=== PATIENT | male | born 1965 | race Caucasian/White ===

== ENCOUNTER 2020-10-21 14:01 | Observation (INO) | payer BC, SELFPAY ==
[2020-10-21] VITALS (13 sets, daily range): BP systolic 132–198; BP diastolic 74–120; PULSE 67–110; RESP 12–20; TEMP 36.7–37; O2SAT 93–99; BMI 22.2; BMI 22.1
--- NOTE | 2020-10-21 15:05 | HMH.EDUTC ---
[facility] [place] Clinical Impression: Epigastric abdominal pain Disposition: Still a Patient Condition on Discharge: Undetermined Additional Instructions: Sent to ER for further workup and imaging. Referrals: Ricki Durán MD [Primary Care Provider] - Time of Disposition: 15:19 Medical Decision Making - Saad Inquiry Pt receiving controlled substance: No Vital Signs: 10/21/20 14:40 Temperature 98.6 F Temperature Source Oral Pulse Rate [Right Brachial] 109 H Respiratory Rate 20 Blood Pressure [Right Arm] 192/109 H Blood Pressure Mean [Right Arm] 136 Blood Pressure Source [Right Arm] Automatic Cuff Blood Pressure Position [Right Arm] Sitting 02 Sat by Pulse Oximetry 98 Oxygen Delivery Method Room Air [facility] [place] - General Stated complaint: stomach pain and back Time Seen by Provider: 10/21/20 15:05 Mode of Arrival: Ambulatory Source of Information: Patient Limitations: No Limitations Description of Symptoms (Recalled from Triage Doc. by RN): PATIENT C/O SEVERE ABDOMINAL PAIN AND BACK PAIN X 4 WEEKS. ALSO REPORTS A DECREASED APPETITE AND RECENT WEIGHT LOSS HEENT Symptoms (Recalled from RN notes): No Resp Symptoms (Recalled from RN notes): No Skin Symptoms (Recalled from RN notes): No MS Symptoms (Recalled from RN notes): No Functional Status (Recalled from RN notes): WNL - History of Present Illness Provider Complaint: Patient presents with epigastric pain, radiating into back. Has had pain for about 4 weeks. He does drink and is trying to cut back. Since being here, he states pain is radiating between his shoulder blades as well. He has early satiety. Food isn't appealing and he is trying to force himself to eat. He has lost around 15 pounds in the past 5-6 weeks. Location: abdomen Radiation: back Quality: burning Consistency: constant Relieving factors: none Exacerbating factors: none Associated symptoms: loss of appetite, malaise, nausea/vomiting Treatments prior to arrival: none - Related Data Home Medications Medication Instructions Recorded Confirmed Lisinopril/Hydrochlorothiazide 1 tab PO DAILY 10/21/20 10/21/20 [Lisinopril-Hctz 10-12.5 mg Tab*] Allergies Allergy/AdvReac Type Severity Reaction Status Date / Time No Known Allergies Allergy Verified 10/21/20 14:50 - Worker's Comp Is this a Worker's Comp case?: No [facility] History - Hepatitis A Screen Drug use history?: No High risk sexual behaviors?: No History of sexually transmitted infection?: No Currently employed?: No Childcare worker?: No Do you have indoor plumbing?: Yes Do you have electricity?: Yes Attestation statement:: This patient has been screened for Hepatitis A risk factors. I have reviewed the patient's past medical history: Yes - Social History Alcohol Intake: never Occupational Status: other ROS Obtained: Yes All systems reviewed & no additional complaints - Constitutional Constitutional: Reports poor appetite, Reports weight loss - Gastrointestinal Gastrointestingal: Reports: abdominal pain, loose stools, nausea Physical Exam - General General appearance: alert, other (uncomfortable) - Eye Eye exam: Present: jaundice - Chest Chest inspection: Present: normal inspection, symmetric chest wall rise - Respiratory Respiratory exam: Present: normal lung sounds bilaterally - Cardiovascular Cardiovascular exam: Present: regular rate, normal rhythm - Abdominal Exam Abdominal exam: Present: tenderness Abdominal tenderness: Present: epigastrium - Neurological Exam Neurological exam: Present: alert, oriented X3 - Psychiatric Psychiatric exam: Present: normal affect, normal mood - Skin Skin exam: Present: warm, dry, intact
--- NOTE | 2020-10-21 15:33 | CT_ITS ---
PROCEDURE: CT ABDOMEN PELVIS W CON CLINICAL INDICATION: epigastric pain COMPARISON: US US GALLBLADDER from 10/21/2020 TECHNIQUE: IV Contrast: 75ML Isovue 370 Oral Contrast None Axial images obtained with sagittal and coronal reformats. All CT scans at the facility use one or more dose reduction, viz: automated exposure control, ma/kV adjustment per patient size (including targeted exams where dose is matched to indication, i.e. head), or iterative reconstruction technique. FINDINGS: LOWER THORAX: No acute finding ABDOMEN & PELVIS: Fatty liver. No focal liver lesion identified. The spleen, adrenal glands, and kidneys have an unremarkable appearance. There is an oval area decreased attenuation within the anterior aspect of the junction of the body and head of the pancreas measuring 18 x 6 mm. This is best demonstrated on series 3 image 36 and 37. No biliary dilatation. No pancreatic ductal dilatation. No evidence of appendicitis. There are scattered air-fluid levels within nondilated large and small bowel. This may be seen with ileus, enterocolitis/diarrhea disease. No evidence of intestinal obstruction or free air. Urinary bladder wall is moderately thickened measuring up to 8 mm in thickness. The prostate gland is not enlarged. There is a small umbilical hernia. Mild degenerative changes are present in the lumbar spine. IMPRESSION: 1. Scattered air-fluid levels within non distended large and small bowel which may indicate ileus, enterocolitis or diarrhea disease. 2. No evidence of appendicitis or diverticulitis. 3. Iso density along the anterior aspect of the pancreatic head/body junction. This is nonspecific. Cystic pancreatic lesion is a consideration. This may represent a juxta pancreatic lymph node. Nonemergent MRI of the pancreas without and with contrast with pancreatic protocol suggested for further evaluation. 4. There is moderate urinary bladder wall thickening. Chronic outflow obstruction, neurogenic bladder or cystitis is considered. Dictated by: Jem Vale MD 10/21/2020 17:01 Jem Vale MD in [place] 10/21/2020 17:01
--- NOTE | 2020-10-21 15:36 | ECG_ITS ---
APPROVED REPORT Exam: Resting ECG HR:78 bpm ECG Measurements Heart Rate 78 AXES VT 162 P 57 QRSd 86 QRS -3 QT 416 T 32 QTc 474 Conclusion Normal sinus rhythm with sinus arrhythmia Septal infarct, age undetermined Possible Inferior infarct, age undetermined Abnormal ECG Electronically signed by : Juan Francisco Valdez, 10/23/2020 20:30:32
[2020-10-21 15:50] LABS: Basophils # 0.1 K/mm3 (0-0.2); Eosinophils % 0.2 % (0.1-12.0)
--- NOTE | 2020-10-21 15:51 | HMH.EDGENADL ---
ED Disposition Clinical Impression: Hypokalemia, Pancreatic mass, Elevated liver enzymes, Elevated lipase, Alcoholism, Weight loss Abdominal pain Qualifiers: Abdominal location: epigastric Qualified Code(s): R10.13 - Epigastric pain Disposition: Admitted as Observation Condition on Discharge: Fair Additional Instructions: Sent to ER for further workup and imaging. Referrals: Ricki Durán MD [Primary Care Provider] - - Critical Care Critical Care Time: Yes Attestation: On 10/21/20, the high probability of a clinically significant, sudden or life threatening deterioration of the following system(s) required my full and direct attention, intervention and personal management. The time I documented below is in addition to time spent performing reported procedures but includes the following listed in this critical care notation. Total Critical Care Time: 30 Vital system(s) involved:: Metabolic Failure My critical care processes included: Assessment & monitoring of V/S, Initial and Re-exams, Data Review/Interpretation, Coordinating Care, Medication Orders and management, Documentation Medical Decision Making - Saad Inquiry Pt receiving controlled substance: No Vital Signs: 10/21/20 14:40 10/21/20 15:29 10/21/20 15:33 Temperature 98.6 F 98.3 F Temperature Source Oral Oral Pulse Rate 102 H Pulse Rate [Right Brachial] 109 H 110 H Respiratory Rate 20 18 18 Blood Pressure 161/120 H Blood Pressure [Right Arm] 192/109 H 198/115 H Blood Pressure Mean 131 Blood Pressure Mean [Right Arm] 136 142 Blood Pressure Source [Right Arm] Automatic Cuff Automatic Cuff Blood Pressure Position [Right Arm] Sitting Sitting 02 Sat by Pulse Oximetry 98 98 99 Oxygen Delivery Method Room Air Room Air 10/21/20 16:00 10/21/20 16:01 10/21/20 18:00 Temperature Temperature Source Pulse Rate 106 H 72 Pulse Rate [Right Brachial] 105 H Respiratory Rate 18 16 16 Blood Pressure 158/113 H 167/98 H Blood Pressure [Right Arm] 158/113 H Blood Pressure Mean 128 149 Blood Pressure Mean [Right Arm] 128 Blood Pressure Source [Right Arm] Blood Pressure Position [Right Arm] 02 Sat by Pulse Oximetry 98 99 98 Oxygen Delivery Method - Lab Data Lab Results 10/21/20 15:33: WBC 11.6 H, RBC 4.95, Hgb 18.4 H*, Hct 55.1 H, MCV 111.3 H, MCH 37.1 H, MCHC 33.3, RDW 16.2, Plt Count 294, MPV 8.5, Neut % (Auto) 74.6, Lymph % (Auto) 18.7, [place] % (Auto) 6.0, Eos % (Auto) 0.2, Baso % (Auto) 0.5, Neut # (Auto) 8.6 H, Lymph # (Auto) 2.2, [place] # (Auto) 0.7, Eos # (Auto) 0.0, Baso # (Auto) 0.1 10/21/20 15:33: Sodium 138, Potassium 2.5 L*, Chloride 95 L, Carbon Dioxide 34 H, Anion Gap 11.5, BUN 3 L, Creatinine 0.60 L, Estimated Creat Clear 150, Estimated GFR 141, Est GFR ( Amer) 171, Glucose 101 H, Calcium 9.4, Total Bilirubin 1.4 H, AST 184 H, ALT 126 H, Alkaline Phosphatase 106, Troponin I < 0.01, Total Protein 7.2, Albumin 4.0, Globulin 3.2, Albumin/Globulin Ratio 1.3, Amylase 91, Lipase 422 H 10/21/20 15:33: Lactate 1.8 10/21/20 15:33: Ammonia < 9 L 10/21/20 15:33: PT 10.9, INR 0.92 10/21/20 15:33: Magnesium 2.0 10/21/20 16:55: Urine Color Yellow, Urine Appearance Clear, Urine pH 7.5, Ur Specific [place] 1.010, Urine Protein Negative, Urine Glucose (UA) Negative, Urine Ketones 1+, Urine Blood Negative, Urine Nitrate Negative, Urine Bilirubin 1+ A, Urine Urobilinogen 0.2, Ur Leukocyte Esterase Negative, Urine RBC None, Urine WBC None, Ur Squamous Epith Cells None, Urine Bacteria None Result diagrams: 10/21/20 15:33 10/21/20 15:33 Orders (Tests/Meds): ED MEDICATIONS Discontinued Medications Generic Name Dose Route Start Last Admin Trade Name Freq PRN Reason Stop Dose Admin Sodium Chloride 1,000 mls @ 999 mls/hr 10/21/20 16:15 10/21/20 16:06 Sod Chlor 0.9% 1000ml Bag IV 10/21/20 17:15 999 mls/hr .Q1H1M ANATOLY Administration Potassium Chloride/Water 100 mls @ 50 mls/hr 10/21/20 16:30 10/21/20 16:40
[2020-10-21 15:56] LABS: Basophils % 0.5 % (0.1-2.0); Hematocrit 55.1 % (42.0-52.0); Hemoglobin 18.4 g/dL (14.1-18.0); Lymphocytes # 2.2 K/mm3 (0.7-4.5); Lymphocytes % 18.7 % (10-50); Mean Corpuscular HGB Conc 33.3 g/dL (31.8-35.4); Mean Corpuscular Hemoglobin 37.1 pg (27.0-31.2); Mean Corpuscular Volume 111.3 fl (80-94); Mean Platelet Volume 8.5 fl (7.4-10.4); Monocytes # 0.7 K/mm3 (0.1-1.0); Neutrophils # 8.6 K/mm3 (1.8-7.8); Neutrophils % 74.6 % (37.0-80.0); Platelet Count 294 K/mm3 (142-424); Red Blood Count 4.95 M/mm3 (4.60-6.20); Red Cell Distribution Width 16.2 % (11.5-17.5); White Blood Count 11.6 K/mm3 (4.8-10.8)
--- NOTE | 2020-10-21 15:58 | XR_ITS ---
PROCEDURE: XR CHEST PORTABLE CLINICAL HISTORY: epigastric pain COMPARISON: No exams were available for comparison FINDINGS: Unremarkable cardiovascular structures. The lungs are clear without infiltrates, suspicious nodules, or pleural effusions. No acute bony abnormalities. IMPRESSION: No change with no acute finding Dictated by: Jem Vale MD 12/14/2020 12:31 Jem Vale MD in [place] 12/14/2020 12:31
[2020-10-21 16:00] LABS: Chloride 95 mmol/L (98-107)
[2020-10-21 16:01] LABS: Potassium 2.5 mmoL/L (3.5-5.1); Sodium 138 mmol/L (136-145)
[2020-10-21 16:03] LABS: Amylase 91 U/L (30-110); Blood Urea Nitrogen 3 mg/dl (9-20); Creatinine Clearance Estimated 150 mL/min (50-200); Estimated Glomerular Filt Rate 141 ml/min (>60); GFR (African American) 171 ML/MIN (>60); Lactic Acid 1.8 mmol/L (0.7-2.1)
[2020-10-21 16:04] LABS: Alanine Aminotransferase 126 U/L (12-78); Albumin/Globulin Ratio 1.3 (1.1-1.8); Alkaline Phosphatase 106 U/L (38-126); Anion Gap 11.5 mEq/L (5-15); Aspartate Amino Transferase 184 U/L (17-59); Bilirubin,Total 1.4 mg/dl (0.2-1.3); Calcium 9.4 mg/dl (8.4-10.2); Carbon Dioxide 34 mmol/L (22.0-30.0); Globulin 3.2 g/dL (1.3-3.2); Glucose 101 mg/dl (74-100); Lipase 422 U/L (23-300); Total Protein,Serum 7.2 g/dl (6.3-8.2)
[2020-10-21 16:05] LABS: Ammonia < 9 umol/L (9-30)
--- NOTE | 2020-10-21 16:05 | US_ITS ---
PROCEDURE INFORMATION: Exam: US Abdomen, Limited; Right Upper Quadrant Exam date and time: 10/21/2020 4:05 PM Age: 55 years old Clinical indication: Abdominal pain; Generalized; Patient HX: Abdomen pain ---. No appitite TECHNIQUE: Imaging protocol: US abdomen. Real time ultrasound with image documentation. Limited exam focused on the right upper quadrant. COMPARISON: CT ABDOMEN PELVIS W CON 10/21/2020 4:19 PM FINDINGS: Liver: Normal. No masses. Gallbladder: The gallbladder is seen and unremarkable. Common bile duct: The common bile duct measures 3.5 mm. Pancreas: Visualized pancreas is unremarkable. Right kidney: The right kidney measures 11.8 x 4.4 x 6 cm. No evidence of hydronephrosis or stones. IMPRESSION: Unremarkable right upper quadrant ultrasound.
--- NOTE | 2020-10-21 16:09 | PC.NURSE ---
Pt going up to radiology
[2020-10-21 16:13] LABS: INR 0.92 (0.9-1.1); Prothrombin Time 10.9 seconds (10.1-12.5)
[2020-10-21 16:17] LABS: Troponin I < 0.01 ng/ml (0.00-0.034)
[2020-10-21 16:59] LABS: Microscopic, Urine URINE MICROSCOPIC (MICROSCOPIC)
[2020-10-21 17:01] LABS: Appearance,Urine CLEAR (Clear); Blood, Urine Negative (Negative); Color,Urine YELLOW (Yellow); Glucose,Urine (UA) Negative (Negative); Ketones,Urine 1+ (Negative); Leukocyte Esterase,Urine Negative (Negative); Nitrate,Urine Negative (Negative); PH,Urine 7.5 (5.0-8.5); Protein,Urine Negative (Negative); Urobilinogen,Urine 0.2 EU/dl (0.2)
[2020-10-21 17:04] LABS: Bilirubin,Urine 1+ (Negative)
--- NOTE | 2020-10-21 18:21 | PC.NURSE ---
Dr. Durán pagehudson
--- NOTE | 2020-10-21 19:37 | PC.NURSE ---
Pt and his requested to s/w Dr. Daigle again regarding the CT results, MD aware.
--- NOTE | 2020-10-21 19:58 | PC.NURSE ---
attempted to call to call report, however floor unaware of pt admission. Called House to verify pt is assigned.
--- NOTE | 2020-10-21 20:56 | PC.NURSE ---
Attempted to call report at this time.
--- NOTE | 2020-10-21 21:41 | PC.NURSE ---
Report called to charge nurse at this time.
--- NOTE | 2020-10-21 22:14 | PC.NURSE ---
PT ARRIVED TO FLOOR VIA W/C FROM ED W/STAFF r [id number]
[2020-10-21 22:19] LABS: Troponin I < 0.01 ng/ml (0.00-0.034)
[2020-10-22] VITALS: BP 158/101; PULSE 69; PULSE 80; RESP 16; TEMP 36.9; O2SAT 99
[2020-10-22 04:00] VITALS: BP 170/99; PULSE 70; PULSE 71; RESP 16; TEMP 36.7; O2SAT 99
[2020-10-22 07:36] LABS: Amylase 77 U/L (30-110); Anion Gap 4.2 mEq/L (5-15); Blood Urea Nitrogen 2 mg/dl (9-20); Carbon Dioxide 32 mmol/L (22.0-30.0); Chloride 101 mmol/L (98-107); Creatinine Clearance Estimated 179 mL/min (50-200); Estimated Glomerular Filt Rate 174 ml/min (>60); GFR (African American) 210 ML/MIN (>60); Glucose 94 mg/dl (74-100); Lipase 461 U/L (23-300); Potassium 3.2 mmoL/L (3.5-5.1); Sodium 134 mmol/L (136-145)
[2020-10-22 07:48] LABS: Calcium 8.4 mg/dl (8.4-10.2)
[2020-10-22 08:00] VITALS: BP 172/95; PULSE 74; PULSE 80; RESP 17; TEMP 36.6; O2SAT 98
[2020-10-22 08:36] LABS: Alanine Aminotransferase 81 U/L (12-78); Aspartate Amino Transferase 95 U/L (17-59); Bilirubin,Unconjugated 0.9 mg/dL (0.0-1.1)
[2020-10-22 08:37] LABS: Alkaline Phosphatase 74 U/L (38-126); Bilirubin,Direct 0.5 mg/dl (0.0-0.4); Bilirubin,Indirect 0.9 mg/dL (0.0-0.9); Bilirubin,Total 1.4 mg/dl (0.2-1.3); Total Protein,Serum 5.7 g/dl (6.3-8.2)
--- NOTE | 2020-10-22 08:43 | HMH.HPDC ---
General - General Admission date:: 10/21/20 Discharge date: 10/22/20 *Admission Date: 10/21/20 *Chief complaint: abdominal pain *History of present illness: 55 year old male with a few week history of upper abdominal pain. Patient describes his pain as a band like pressure around his upper abdomen and around to both sides. He has had a decrease in his appetite and some weight loss as well. Patient denies fever and chills. He has had nausea but no vomiting. He has had constipation, denies diarrhea. No sick contacts. Patient drinks around a 5th of liquor per day. [facility] History Medical History: Reports:: Hypertension Denies:: Cancer, Diabetes Mellitus Type 1, Diabetes Mellitus Type 2, MRSA *Have you ever received a pneumonia vaccine?: No *Have you received a flu vaccine this season?: No Amputation: No - *Social History Last grade of school completed: High school graduate Smoking Status: Current every day smoker Tobacco Type: cigarettes, smokeless tobacco # Packs/Day (cigarettes): 1 Alcohol Intake: current Alcohol Intake Frequency:: 0-2 drinks per day *Occupational Status:: employed Housing: house Household Members: spouse *Travel in the last 8 weeks: None Family Hx:: No significant family history Review of Systems - Constitutional Denies chills, Denies fever(s) - Eyes Denies change in vision - ENT Denies abnormal hearing - *Cardiovascular Denies chest pain - *Respiratory Denies cough - *Genitourinary Denies difficulty urinating - *Musculoskeletal Denies joint pain - Integumentary/Breasts Denies rash - *Neurologic Denies dizziness Exam Vital signs and Labs for Last 24 Hours: Temp Pulse Resp BP Pulse Ox 98.1 F 71 16 170/99 H 99 10/22/20 04:00 10/22/20 04:00 10/22/20 04:00 10/22/20 04:00 10/22/20 04:00 Laboratory Results - last 24 hr 10/21/20 15:33: WBC 11.6 H, RBC 4.95, Hgb 18.4 H*, Hct 55.1 H, MCV 111.3 H, MCH 37.1 H, MCHC 33.3, RDW 16.2, Plt Count 294, MPV 8.5, Neut % (Auto) 74.6, Lymph % (Auto) 18.7, [place] % (Auto) 6.0, Eos % (Auto) 0.2, Baso % (Auto) 0.5, Neut # (Auto) 8.6 H, Lymph # (Auto) 2.2, [place] # (Auto) 0.7, Eos # (Auto) 0.0, Baso # (Auto) 0.1 10/21/20 15:33: Sodium 138, Potassium 2.5 L*, Chloride 95 L, Carbon Dioxide 34 H, Anion Gap 11.5, BUN 3 L, Creatinine 0.60 L, Estimated Creat Clear 150, Estimated GFR 141, Est GFR ( Amer) 171, Glucose 101 H, Calcium 9.4, Total Bilirubin 1.4 H, AST 184 H, ALT 126 H, Alkaline Phosphatase 106, Troponin I < 0.01, Total Protein 7.2, Albumin 4.0, Globulin 3.2, Albumin/Globulin Ratio 1.3, Amylase 91, Lipase 422 H 10/21/20 15:33: Lactate 1.8 10/21/20 15:33: Ammonia < 9 L 10/21/20 15:33: PT 10.9, INR 0.92 10/21/20 15:33: Magnesium 2.0 10/21/20 16:55: Urine Color Yellow, Urine Appearance Clear, Urine pH 7.5, Ur Specific [place] 1.010, Urine Protein Negative, Urine Glucose (UA) Negative, Urine Ketones 1+, Urine Blood Negative, Urine Nitrate Negative, Urine Bilirubin 1+ A, Urine Urobilinogen 0.2, Ur Leukocyte Esterase Negative, Urine RBC None, Urine WBC None, Ur Squamous Epith Cells None, Urine Bacteria None 10/21/20 21:53: Troponin I < 0.01 10/22/20 06:50: Sodium 134 L, Potassium 3.2 L D, Chloride 101, Carbon Dioxide 32 H, Anion Gap 4.2 L, BUN 2 L D, Creatinine 0.50 L, Estimated Creat Clear 179, Estimated GFR 174, Est GFR ( Amer) 210 D, Glucose 94, Calcium 8.4 D, Amylase 77 D, Lipase 461 H 10/22/20 06:50: Total Bilirubin 1.4 H, Direct Bilirubin 0.5 H, Conjugated Bilirubin 0.0, Indirect Bilirubin 0.9, Unconjugated Bilirubin 0.9, AST 95 H D, ALT 81 H D, Alkaline Phosphatase 74, Total Protein 5.7 L, Albumin 3.0 L D I & O for Last 24 hours: Intake & Output 10/19/20 10/20/20 10/21/20 10/22/20 23:59 23:59 23:59 23:59 Weight 163 lb 7 oz Microbiology Reports for the Last 24 Hours: Microbiology 10/21/20 15:50 Nasopharyngeal Coronavirus COVID-19 PCR - Final - Constitutional no acute distress - *Routine HEENT E
== END 2020-10-22 12:00 | disposition home or self-care (01) ==
LOC: UTC 15:19 → ER 15:28 → 2ND 20:40
PROVIDERS: Admitting Provider Family Medicine; Emergency Provider Emergency Medicine; PCP Family Medicine; Visit Provider Family Medicine
DX: R10.13 Epigastric pain (principal); K59.00 Constipation, unspecified; F17.210 Nicotine dependence, cigarettes, uncomplicated; F17.220 Nicotine dependence, chewing tobacco, uncomplicated; I10 Essential (primary) hypertension; F10.20 Alcohol dependence, uncomplicated; K86.9 Disease of pancreas, unspecified
CPT/HCPCS: 71045; 74177; 76705; 80048; 80053; 80076; 81001; 82140; 82150; 83605; 83690; 83735; 84484; 85025; 85610; 87040; 93005; 96365; 99282; G0378; Q9967; U0003

== ENCOUNTER → 2020-10-28 10:20 | Outpatient (CLI) | payer BC, SELFPAY ==
--- NOTE | 2020-10-28 10:30 | MR_ITS ---
PROCEDURE: MR ABDOMEN WO/W CON CLINICAL INDICATION: ? AREA SEEN ON PANCREAS COMPARISON: CT CT ABDOMEN PELVIS W CON from 10/21/2020 TECHNIQUE: Routine multiplanar multi echo sequences are performed without gadolinium enhancement. FINDINGS: The liver demonstrates homogeneous signal intensity without evidence of focal lesions. No abnormal enhancement is noted. The gallbladder is unremarkable. No intra or extrahepatic biliary dilation. There is a focal T2 hypo intense lesion measuring approximately 1.3 centimeters at the head/body junction of the pancreas. Multiphasic contrast-enhanced images demonstrate hypoenhancement of the focal area with adjacent heterogeneous enhancement better visualized on the coronal images, series 23, images 43-45). Heterogeneous appearance of the adjacent pancreas. Minor adjacent stranding is noted in the peripancreatic tissue at this level. The rest of the body, and tail of the pancreas is within normal limits. No significant pancreatic ductal dilation. No significant retroperitoneal or peripancreatic lymphadenopathy. The spleen, adrenal glands, and kidneys are unremarkable. The visualized large and small bowel loops are unremarkable. Visualized lung bases are clear. IMPRESSION: Focal hypoenhancing area at the head and neck junction of the pancreas measuring approximately 1.3 cm. Pancreatic neoplasm should be excluded. Focal pancreatitis should be considered. ERCP is recommended for further evaluation. Dictated by: Ellie Burks 10/28/2020 14:26 Ellie Burks in [place] 10/28/2020 14:26
== END ==
PROVIDERS: PCP Family Medicine; Visit Provider Family Medicine
DX: D37.8 Neoplasm of uncertain behavior of other specified digestive organs (principal)
CPT/HCPCS: 74183; 76376; A9576

== ENCOUNTER → 2020-11-04 15:02 | Outpatient (CLI) | payer BC, SELFPAY | PROVIDERS: Visit Provider Internal Medicine Gastroenterology | DX: Z01.812 Encounter for preprocedural laboratory examination (principal); Z11.52 Encounter for screening for COVID-19 | CPT/HCPCS: U0003 ==

== ENCOUNTER 2020-11-07 12:07 | Day surgery (SDC) | payer BC, SELFPAY ==
[2020-11-03 14:39] VITALS: BMI 22.5
[2020-11-07] VITALS (9 sets, daily range): BP systolic 135–181; BP diastolic 87–115; PULSE 56–89; RESP 18; TEMP 36.2–36.3; O2SAT 98–100
--- NOTE | 2020-11-07 14:30 | FL_ITS ---
PROCEDURE: FL ERCP CLINICAL INDICATION: abnormal findings on a diagnostic image Abnormal MRI of the pancreas. Pain COMPARISON: CT CT ABDOMEN PELVIS W CON from 10/21/2020 MR MR ABDOMEN WO/W CON from 10/28/2020 FINDINGS: Fluoroscopy time: 1 minutes and 41 seconds. Only the accessory pancreatic duct was cannulated suggesting a pancreatic divisum versus stricture in of the main pancreatic duct however, there was no ductal dilatation on the previous MRI.. IMPRESSION: Possible pancreatic divisum. Please correlate with fluoroscopic findings. Dictated by: Jem Vale MD 11/10/2020 08:00 Jem Vale MD in [place] 11/10/2020 08:00
--- NOTE | 2020-11-07 15:39 | HMH.PROC ---
[facility] Procedure Note Procedure Note:: ERCP procedure Report: Endoscopic retrograde cholangiopancreatography with biliary/pancreatic sphincterotomy, pancreatic stent placement and cold biopsy Endoscopist: Zeferino Ro II, MD Referring Physician: Ricki Durán MD Date of Procedure: November 07, 2020 Equipment: Olympus 180 side viewing endoscope duodenoscope Sedation: MAC sedation Indication: Mr. Marie is a 55-year-old gentleman who recently was hospitalized with several weeks of upper abdominal pain. He felt a bandlike pressure around his upper abdomen into both sides. He has had reduced appetite with some weight loss. He does drink alcohol daily but has reduced a little bit. He was drinking 1/5 of bourbon +4 beers daily. He did have a CT scan of the abdomen and ultrasound of the abdomen on October 21, 2020. His CAT scan showed isodensity along the anterior aspect of the pancreatic head/body/junction which was nonspecific. This appeared to be possible cystic pancreatic lesion. The ultrasound showed a normal gallbladder and normal biliary tree of 3.5 mm. A subsequent MRI with and without contrast showed focal hypoenhancing area at the head/neck of the pancreas measuring approximately 1.3 cm. Procedure: Prior to the procedure, a history and physical exam was performed, and patient's medications and allergies were reviewed. The risks, benefits and alternatives of the sedation and procedure were discussed with the patient. All questions were answered and informed consent was obtained. The patient was brought to the fluoroscopic radiology room. Patient identification and proposed procedure were verified by the physician and the nurse. The patient was placed in a swimmer's position between left lateral decubitus and prone position and the scope was passed under direct vision. Throughout the procedure, the patient's blood pressure, pulse, and oxygen saturations were monitored continuously. The ERCP was accomplished without difficulty. The patient tolerated the procedure well. Findings: The side-viewing duodenoscope was passed directly into the upper esophagus and advanced to the second portion of the duodenum. There was evidence of short segment Banegas's esophagus and biopsies were obtained at the GE junction. There was a small 2 to 3 cm hiatal hernia. There was mild reactive gastropathy. The ampulla was well visualized. The pancreatic duct was selectively cannulated. The pancreatogram did show filling of the head and neck of the gland with filling of the uncinate 8 and a portion of the accessory duct. The pancreatic duct in the head and neck was approximately 3 to 4 mm. There was some filling of the pancreatic duct neck but there was no filling of the body or tail the pancreas suggesting either stricture versus complete pancreas divisum. A pancreatic sphincterotomy was performed adjacent to the stent to see if possible brushings/biopsies but there was no discernible stricture. A prophylactic 7 [place] 3 cm single pigtail short pancreatic stent was deployed. The bile duct was not dilated (on ultrasound) and was not cannulated. Impression: 1. Filling of head/neck of pancreatic duct with filling of uncinate duct and accessory duct?nonfilling of body and tail the pancreas 2. Short segment Banegas's esophagus with nonerosive GERD and small 2 to 3 cm hiatal hernia Plan: This could represent complete pancreas divisum versus stricturing of the pancreatic duct. I am going to recommend endoscopic ultrasound. I will also obtain CA 19-9. I do feel that most likely this is some chronic pancreatitis due to alcohol. I also feel that he has some alcohol related liver injury. I will discuss the findings with the patient. I would strongly encourage avoidance of alcohol. Certainly tobacco plus alcohol does increase risk of chronic pancreatitis and related pancreatic adenocarcinoma arising within chronic pancreatitis. I would encourage abstinence. I will
--- NOTE | 2020-11-07 16:39 | SUR.PHASEII ---
INFORMED KHADAR NICHOLS [employer]TER OPERATOR OF HYPERTENSION AND NEW ORDERS NOTED FOR HYDRALAZINE 5MG IV NOW AND EVERY 4 HOURS.
--- NOTE | 2020-11-07 16:43 | P.PN_ITS ---
[facility] Anesthesia Checklist - Patient Identification Patient Identification: Arm Band - Structural Data Admitted From: Home Planned Operative Procedure/s: ERCP Consent for Planned Operative Procedure(s) Verified: Yes - NPO Status Verified Time NPO: 00:00 - Airway Assessment C-Spine Mobility Assessed: Yes TMJ Mobility Assessed: Yes Dentition: Dentures-good fit - Neurological Assessment Level of Consciousness: Awake Hx Seizures: No Numbness or tingling in extremities: No - Anesthesia Plan Anesthesia Risk discussed: Yes Anesthesia Plan: Verified ASA Class: II Anesthesia Type: MAC [facility] History I have reviewed the patient's past medical history: Yes Medical History: Reports:: Hypertension Denies:: Cancer, Diabetes Mellitus Type 1, Diabetes Mellitus Type 2, MRSA, Seizures *Have you ever received a pneumonia vaccine?: No *Have you received a flu vaccine this season?: No Anesthesia experience/problems:: none Laterality Cases: Bilateral: Arthroscopy Hip Amputation: No Fractures: No - *Social History Last grade of school completed: High school graduate Smoking Status: Current every day smoker Tobacco Type: cigarettes # Packs/Day (cigarettes): 1 Alcohol Intake: current Alcohol Intake Frequency:: 3 or more drinks per day Substance Use Type: denies use *Occupational Status:: employed Housing: house Household Members: spouse *Travel in the last 8 weeks: None Family Hx:: No significant family history
--- NOTE | 2020-11-07 16:51 | SUR.PHASEII ---
1645 HYDRALAZINE 5MG IV GIVEN
[2020-11-10 05:52] LABS: CA 19-9 37 U/mL (0-35)
== END 2020-11-07 17:12 | disposition home or self-care (01) ==
LOC: OUTP 12:10
PROVIDERS: PCP Family Medicine; Visit Provider Internal Medicine Gastroenterology
PROC: (CPT 43262; principal; 2020-11-07 13:30)
DX: K86.89 Other specified diseases of pancreas (principal); K22.70 Barrett's esophagus without dysplasia; K21.9 Gastro-esophageal reflux disease without esophagitis; K44.9 Diaphragmatic hernia without obstruction or gangrene; Z72.89 Other problems related to lifestyle
CPT/HCPCS: 43262; 43274; 36415; 74330; 86316; J2704; Q9967

== ENCOUNTER → 2020-11-22 11:00 | Outpatient (CLI) | payer BC, SELFPAY ==
--- NOTE | 2020-11-22 11:05 | XR_ITS ---
PROCEDURE: XR ABDOMEN MIN 2V CLINICAL INDICATION: ABN FINDINGS GI TRACT,R/O RETAINED PANCREATIC STENT COMPARISON: CT CT ABDOMEN PELVIS W CON from 10/21/2020 MR MR ABDOMEN WO/W CON from 10/28/2020 RF FL ERCP from 11/07/2020 FINDINGS: Unremarkable bowel gas pattern. No obvious radiopaque retained pancreatic stent. There is scattered vascular calcification. IMPRESSION: No retained pancreatic stent identified Dictated by: Jem Vale MD 11/22/2020 11:26 Jem Vale MD in [place] 11/22/2020 11:26
== END ==
PROVIDERS: PCP Family Medicine; Visit Provider Internal Medicine Gastroenterology
DX: R93.3 Abnormal findings on diagnostic imaging of other parts of digestive tract (principal)
CPT/HCPCS: 74019

== ENCOUNTER → 2020-12-30 14:48 | Outpatient (CLI) | payer BC, SELFPAY | DX: Z20.822 Contact with and (suspected) exposure to COVID-19 (principal) | CPT/HCPCS: U0003 ==